=== PATIENT | male | born 1955 | race Caucasian/White ===

== ENCOUNTER 2017-01-13 06:03 | Day surgery (SDC) | payer OTHER ==
[~2017-01-13] VITALS: Ht 182.9 cm; Wt 83.0 kg
[~2017-01-13 06:03] MED LIST: ASPI-496 PO; ATOR20TA9 PO; CHOL200024 PO; LEVE250T28 PO; MULT-516 PO; OMEG1CAP24 PO; UBID100C24 PO
[2017-01-13] MEDS ORDERED: LACTATED RINGERS 1,000 ML IV SCH (06:38)
[2017-01-13] MEDS ORDERED: BUPIVACAINE/PF-EPI 0.5% 1:200K ONE (07:04)
[2017-01-13] MEDS ORDERED: FENTANYL PF 250 MCG/5ML ONE (07:14)
[2017-01-13] MEDS ORDERED: ACETAMINOPHEN 325 MG TABLET PO PRN (08:00)
[2017-01-13] MEDS ORDERED: OXYcodone 5 MG/5 ML ORAL.SOL UDC PO PRN (08:00)
[2017-01-13] MEDS ORDERED: FENTANYL PF 100 MCG/2ML IV PRN (08:00)
[2017-01-13] MEDS ORDERED: HYDROmorphone 1 MG/ML, 1ML IV PRN (08:00)
[2017-01-13] MEDS ORDERED: hydrALAzine 20 MG/ML, 1ML IV PRN (08:00)
[2017-01-13] MEDS ORDERED: PROMETHAZINE 25 MG/ML, 1ML IV PRN (08:00)
[2017-01-13] MEDS ORDERED: METOPROLOL 1 MG/ML, 5ML IV PRN (08:00)
[2017-01-13] MEDS ORDERED: DEXAMETHASONE 4 MG/ML, 1ML ONE (11:01)
[2017-01-13] MEDS ORDERED: KETOROLAC 30 MG/1 ML ONE (11:01)
[2017-01-13] MEDS ORDERED: ONDANSETRON 2MG/ML, 2ML ONE (11:01)
[2017-01-13] MEDS ORDERED: PROPOFOL 10 MG/ML, 20ML ONE (11:01)
[2017-01-13] MEDS ORDERED: CEFAZOLIN 1,000 MG ONE (11:01)
== END 2017-01-13 10:40 ==
LOC: OUT 06:03
PROVIDERS: ATTEND Surgery
DX: K40.90 Unilateral inguinal hernia, without obstruction or gangrene, not specified as recurrent (principal); E78.00 Pure hypercholesterolemia, unspecified; Z85.46 Personal history of malignant neoplasm of prostate; Z79.82 Long term (current) use of aspirin; Z72.89 Other problems related to lifestyle; Z88.1 Allergy status to other antibiotic agents; Z88.8 Allergy status to other drugs, medicaments and biological substances
CPT/HCPCS: 49505; C1781; J0690; J1100; J1885; J2405; J2704; J3010; J7120